=== PATIENT | male | born 1995 | race Caucasian/White ===

== ENCOUNTER 2016-10-06 12:02 | Emergency (ER) | payer OTHER | END 2016-10-06 13:15 | disposition home or self-care (01) | LOC: ER 12:02 | DX: J10.1 Influenza due to other identified influenza virus with other respiratory manifestations (principal); Z88.1 Allergy status to other antibiotic agents; Z88.6 Allergy status to analgesic agent | CPT/HCPCS: 71020; 87400; 99283-25 ==